=== PATIENT | male | born 1950 | race Caucasian/White ===

== ENCOUNTER 2022-07-13 09:38 | Outpatient (CLI) | payer MEDICARE, SELFPAY ==
[2022-07-13 14:01] LABS: Albumin* 4.8 g/dL (3.3-5.0)
[2022-07-13 14:02] LABS: Chloride* 100 mmol/L (96-114); Potassium* 3.9 mmol/L (3.6-5.1); Sodium* 140 mmol/L (135-149)
[2022-07-13 14:04] LABS: Alkaline Phosphatase* 59 U/L (40-150); Aspartate Amino Transferase* 32 U/L (12-35); Bilirubin Total* 1.4 mg/dL (0.1-1.5); Blood Urea Nitrogen* 16 mg/dL (7-30); Carbon Dioxide* 30 mmol/L (20-32); Cholesterol* 170 mg/dL (90-199); Creatinine* 0.9 mg/dL (0.5-1.5); Estimated Glomerular Filt Rate 91 ml/min; Total Protein* 7.6 g/dL (6.0-8.3)
[2022-07-13 14:05] LABS: Alanine Aminotransferase* 26 U/L (4-50); Calcium* 9.9 mg/dL (8.4-10.6); Glucose* 104 mg/dL (60-115); HDL Cholesterol* 94 mg/dL (>=40); LDL Cholesterol Calculated 59 mg/dL (<100); Triglycerides* 83 mg/dL (40-149)
== END 2022-07-13 09:39 | disposition home or self-care (01) ==
LOC: LKVREF 09:39
PROVIDERS: PCP Emergency Medicine; Visit Provider Emergency Medicine
DX: Z00.00 Encounter for general adult medical examination without abnormal findings (principal); E78.5 Hyperlipidemia, unspecified
CPT/HCPCS: 80053; 80061

== ENCOUNTER 2022-08-11 15:17 | Outpatient (CLI) | payer MEDICARE, SELFPAY | END 2022-08-11 15:18 | disposition home or self-care (01) | LOC: LKVREF 15:22 | PROVIDERS: PCP Emergency Medicine; Visit Provider Emergency Medicine | DX: Z00.00 Encounter for general adult medical examination without abnormal findings (principal); I10 Essential (primary) hypertension; R03.0 Elevated blood-pressure reading, without diagnosis of hypertension; Z12.5 Encounter for screening for malignant neoplasm of prostate | CPT/HCPCS: 84153 ==

== ENCOUNTER 2023-08-12 08:29 | Outpatient (CLI) | payer MEDICARE, SELFPAY | END 2023-08-12 08:30 | disposition home or self-care (01) | LOC: NFLDREF 08-13 06:13 | PROVIDERS: PCP Emergency Medicine; Referring Provider Emergency Medicine; Visit Provider Emergency Medicine | DX: E78.5 Hyperlipidemia, unspecified (principal); I10 Essential (primary) hypertension; N52.9 Male erectile dysfunction, unspecified; Z12.5 Encounter for screening for malignant neoplasm of prostate | CPT/HCPCS: 80048; 80061; 80076; G0103 ==

== ENCOUNTER 2023-08-31 09:56 | Outpatient (CLI) | payer MEDICARE, SELFPAY | END 2023-08-31 09:57 | disposition home or self-care (01) | PROVIDERS: PCP Emergency Medicine; Visit Provider Emergency Medicine | DX: R73.03 Prediabetes (principal); E80.4 Gilbert syndrome | CPT/HCPCS: 80048 ==

== ENCOUNTER 2023-11-02 12:56 | Outpatient (CLI) | payer MEDICARE, SELFPAY | END 2023-11-02 12:57 | disposition home or self-care (01) | LOC: LKVREF 12:57 | PROVIDERS: PCP Emergency Medicine; Visit Provider Emergency Medicine | DX: Z01.818 Encounter for other preprocedural examination (principal); I10 Essential (primary) hypertension | CPT/HCPCS: 80048 ==

== ENCOUNTER 2024-08-22 09:42 | Outpatient (CLI) | payer MEDICARE, SELFPAY | END 2024-08-22 09:43 | disposition home or self-care (01) | PROVIDERS: PCP Emergency Medicine; Visit Provider Emergency Medicine | DX: E78.2 Mixed hyperlipidemia (principal); I10 Essential (primary) hypertension; Z12.5 Encounter for screening for malignant neoplasm of prostate | CPT/HCPCS: 80053; 80061; G0103 ==